=== PATIENT | male | born 1955 | race Caucasian/White ===

== ENCOUNTER 2020-06-11 14:06 | Outpatient (CLI) | payer OTHER | END 2020-06-11 14:21 | disposition home or self-care (01) | LOC: TOM 14:06 | PROVIDERS: ATTEND Urology | DX: N20.0 Calculus of kidney (principal); M21.70 Unequal limb length (acquired), unspecified site ==

== ENCOUNTER 2023-01-21 07:38 | Outpatient (CLI) | payer OTHER | END 2023-01-21 07:49 | disposition home or self-care (01) | LOC: MRI 07:38 | PROVIDERS: ATTEND Physical Medicine & Rehabilitation | DX: M25.561 Pain in right knee (principal); M17.11 Unilateral primary osteoarthritis, right knee; M25.461 Effusion, right knee | CPT/HCPCS: 73721 ==

== ENCOUNTER → 2024-06-21 14:38 | Outpatient (CLI) | payer OTHER | END | disposition home or self-care (01) | LOC: NUCLEAR 14:38 | PROVIDERS: ATTEND Physical Medicine & Rehabilitation | DX: I82.401 Acute embolism and thrombosis of unspecified deep veins of right lower extremity (principal); I87.2 Venous insufficiency (chronic) (peripheral) ==